=== PATIENT | male | born 2000 | race Caucasian/White ===

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

== ENCOUNTER 2023-08-28 23:07 | Emergency (ER) | payer OTHER, MEDICAID, SELFPAY ==
[2023-08-28 23:08] VITALS: BP 168/112; PULSE 94; RESP 17; TEMP 36.4; O2SAT 99
[2023-08-28 23:20] VITALS: BMI 54.6
--- NOTE | 2023-08-28 23:52 | EDS_ITS ---
HPI History of Present Illness Chief Complaint: Dental Informant: patient Narrative Narrative: Patient is a 22-year-old male with no significant past medical history. He states he was at home this evening when he developed a sharp throbbing pain in his right upper tooth/jaw region. He says there was no trauma prior to the pain beginning. He states that he had no difficulty breathing or swallowing. He reports the pain was constant in nature. He took ibuprofen but it did not help over the first 20 to 30 minutes and secondary to his he presents to the ER for evaluation. Patient does state that upon arrival his pain has improved but not resolved [facility] Medical History (Updated 08/29/23 @ 00:[address] Kenneth Corea, DO) Obese Home Medications ?Medication ?Instructions ?Recorded ?Last Taken ?Type penicillin V potassium 500 mg 500 mg PO 4X/DAY 10 days #40 tabs 08/28/23 Unknown Rx tablet Allergy/AdvReac Type Severity Reaction Status Date / Time No Known Allergies Allergy Verified 08/28/23 23:09 Social History Smoking Status: Never smoker ROS ROS ED Constitutional Constitutional ED: Denies chills or fever(s) Eyes Eyes: Denies change in vision ENT ENT ED: Reports other Details: Positive dental pain ; Denies rhinorrhea or sore throat Cardiovascular Cardiovascular: Denies chest pain Respiratory/Chest Respiratory/Chest: Denies cough or dyspnea Gastrointestinal Gastrointestinal: Denies abdominal pain, diarrhea, nausea or vomiting Genitourinary Genitourinary ED: Denies dysuria Musculoskeletal Musculoskeletal: Denies back pain, myalgias or neck pain Integumentary Denies rash Neurologic Neurologic: Denies headache(s) Hematologic/Lymphatic Hematologic/Lymphatic: Denies easy bleeding or easy bruising Allergic/Immunologic Allergic/Immunologic ED: Denies mouth swelling or tongue swelling EXAM Physical Exam Const Vital Signs: 08/28/23 23:08 Temperature 97.6 F L Temperature Source Temporal Pulse Rate 94 Respiratory Rate 17 Blood Pressure 168/112 H Blood Pressure Mean 130 Pulse Ox 99 Oxygen Delivery Method Room Air Positive well nourished, well developed and obese General Appearance ED: well developed; Negative for pallor Nutritional Appearance: obese HEENT Reports moist mucous membranes HEENT Narrative: Occasional dental caries noted. No obvious dental abscess. No signs of ANUG No tongue or lip swelling no oral lesions no airway edema or compromise Eyes PERRL and EOMs intact bilaterally Neck supple Neck Narrative: No nuchal rigidity or meningeal signs noted No brawny edema in the submental space to suggest Umair's angina Resp normal respiratory effort and clear to auscultation bilaterally Cardio regular rate and regular rhythm Extremity normal to inspection Neuro oriented x3, CN's II-XII intact bilaterally and no sensory deficits noted Sensorium / Orientation: alert Motor Exam: strength 5/5 throughout Psych mental status grossly normal Skin no rashes or lesions noted and no wounds General Skin Exam: Negative for jaundice or pallor MDM MDM MDM Narrative Medical decision making narrative: Patient arrived to the ER hypertensive otherwise with stable vitals. He reported pain in the right upper jaw/tooth region without trauma. Differential diagnosis is for early dental infection versus dental abscess versus ANUG versus Umiar's angina. Patient does not physical exam findings to suggest ANUG or Umair's angina. There is no fluid pocket present going against drainable dental abscess. The fact that the pain did not resolve and return in short intervals goes against trigeminal neuralgia. I believe the patient most likely has a developing dental infection based on exam showing scattered dental caries and the fact he describes the pain as a constant throbbing nature. Therefore that he will be placed on antibiotics as he does not physical exam findings to suggest systemic infection and can follow-up with his dentist for further evaluation. History & Record Review Discussion w/independent historian: Patient and Family Discharge Plan Triage Chief Complaint: Dental ED Provider: Kenneth Corea Dx/Rx/DC Orders Clinical Impression: Dental infection, Dental caries, Elevated blood pressure reading without diagnosis of hypertension Instructions: Dental Abscess, ED Dental Pain Prescriptions: New penicillin V potassium 500 mg tablet 500 mg PO 4X/DAY 10 Days Qty: 40 0RF Primary Care Provider: Care Physician,No Primary Referrals: Care Physician,No Primary [Primary Care Provider] - Activity Restrictions/Additional Instructions: Please follow-up with your dentist for repeat evaluation. Your history and exam indicate you have a developing dental infection down near your nerve root. Take 600 mg of [id number] ibuprofen 3-4 times a day for the next 3 to 5 days to control pain. If symptoms persist or you have any further concerns please return to the ER for repeat evaluation Print Language: Arabic Disposition Disposition: Home, Self Care
[2023-08-29] MEDS: Penicillin Vk 250 MG Tablet 500 MG PO (00:11)
== END 2023-08-29 00:26 | disposition home or self-care (01) ==
PROVIDERS: Emergency Provider Emergency Medicine; Visit Provider Emergency Medicine
DX: K04.7 Periapical abscess without sinus (principal); K02.9 Dental caries, unspecified; R03.0 Elevated blood-pressure reading, without diagnosis of hypertension; E66.9 Obesity, unspecified
CPT/HCPCS: 99282